=== PATIENT | male | born 1955 | race Caucasian/White ===

== ENCOUNTER 2017-04-22 10:46 | Emergency (ER) | payer BC ==
[~2017-04-22] VITALS: Ht 180.3 cm; Wt 72.6 kg
[~2017-04-22 10:46] MED LIST: CEFD300 PO; CHOL10002 PO; FOLI1 PO; PRED20 PO
[2017-04-22 11:18] LABS: Hematocrit 28.2 % (37.0-53.0); Hemoglobin 8.5 g/dL (13.5-17.5); Mean Corpuscular HGB 32.4 pg (26.0-34.0); Mean Corpuscular HGB Conc 30.1 g/dL (31.5-36.5); Mean Corpuscular Volume 108 fL (80-100); Mean Platelet Volume 8.5 fL (9.1-12.4); NRBC ABSOLUTE 1.21 K/mm3 (0.00-0.02); NRBC Auto 4.8 /100 WBC (0.0-0.2); Platelet Count 253 K/mm3 (150-400); RDW Coefficient Variation 18.5 % (11.7-14.2); RDW Standard Deviation 70.1 fL (35.1-46.3); Red Blood Cell Count 2.62 M/mm3 (4.30-5.90); White Blood Cell Count 25.34 K/mm3 (4.00-11.30)
[2017-04-22 11:39] LABS: Alanine Aminotransfer (ALT/SGP 32 U/L (12-78); Albumin, Blood 3.9 g/dL (3.4-5.0); Albumin/Globulin Ratio 1.3 (0.8-1.8); Alk Phos 93 U/L (50-136); Anion Gap 6 mmol/L (6-16); Aspartate Aminotrans (AST/SGOT 33 U/L (12-37); Blood Urea Nitrogen 17 mg/dL (8-24); Bun/Creatinine Ratio 20.7 (12.0-20.0); CO2, Blood 29 mmol/L (21-32); Calcium, Blood 8.3 mg/dL (8.5-10.1); Chloride, Blood 103 mmol/L (98-108); Creatinine, Blood 0.82 mg/dL (0.60-1.20); Glomerular Filtration Rate >60 (60-); Glucose, Blood 103 mg/dL (70-99); Potassium, Blood 4.2 mmol/L (3.5-5.5); Sodium, Blood 138 mmol/L (136-145); Total Protein, Blood 6.9 g/dL (6.4-8.2)
[2017-04-22 11:43] LABS: BAND PERCENT MAN 2 % (0-8); BASOPHILS PERCENT MAN 2 % (0-2); EOSINOPHILS PERCENT MAN 2 % (0-6); LYMPHOCYTES ABSOLUTE MAN 1.52 K/mm3 (0.84-5.20); LYMPHOCYTES PERCENT MAN 6 % (21-46); METAMYELOCYTE ABSOLUTE MAN 0.25 K/mm3 (0.00-0.00); METAMYELOCYTE PERCENT MAN 1 % (0-0); MONOCYTES PERCENT MAN 0 % (4-13); NEUTROPHILS ABSOLUTE MAN 22.55 K/mm3 (1.96-9.15); SEG NEUTROPHILS PERCENT MAN 87 % (41-73); TOTAL CELLS COUNTED 100
== END 2017-04-22 13:40 | disposition left against medical advice (07) ==
LOC: ER 10:46
PROVIDERS: Emergency Medicine
DX: R55 Syncope and collapse (principal); R79.89 Other specified abnormal findings of blood chemistry; F17.200 Nicotine dependence, unspecified, uncomplicated; Z88.5 Allergy status to narcotic agent; Z79.899 Other long term (current) drug therapy; Z79.52 Long term (current) use of systemic steroids
CPT/HCPCS: 36415; 71046; 80053; 84484; 85025; 93005; 93010; 99283

== ENCOUNTER → 2017-11-07 | Outpatient (CLI) | payer BC | LOC: LAB SHORT 08:05 → PLD 08:05 | DX: L98.9 Disorder of the skin and subcutaneous tissue, unspecified (principal) | CPT/HCPCS: 88305; 88312 ==

== ENCOUNTER 2018-04-16 16:35 | Emergency (ER) | payer MEDICARE ==
[~2018-04-16] VITALS: Ht 167.6 cm; Wt 71.7 kg
[2018-04-16] MEDS ORDERED: MINO50 PO (17:04)
[2018-04-16 17:16] LABS: BASOPHILS ABSOLUTE AUTO 0.07 K/mm3 (0.00-0.23); BASOPHILS PERCENT AUTO 1 % (0-2); EOSINOPHILS ABSOLUTE AUTO 0.46 K/mm3 (0.00-0.68); EOSINOPHILS PERCENT AUTO 6 % (0-6); Hematocrit 43.6 % (37.0-53.0); Hemoglobin 13.3 g/dL (13.5-17.5); Mean Corpuscular HGB 27.3 pg (26.0-34.0); Mean Corpuscular HGB Conc 30.5 g/dL (31.5-36.5); Mean Corpuscular Volume 89 fL (80-100); Platelet Count 313 K/mm3 (150-400); RDW Coefficient Variation 19.8 % (11.7-14.2); RDW Standard Deviation 63.9 fL (35.1-46.3); Red Blood Cell Count 4.88 M/mm3 (4.30-5.90); White Blood Cell Count 8.16 K/mm3 (4.00-11.30)
[2018-04-16 17:23] LABS: IMMATURE GRAN ABSOLUTE AUTO 0.05 K/mm3 (0.00-0.10); IMMATURE GRAN PERCENT AUTO 1 % (0-1); LYMPHOCYTES ABSOLUTE AUTO 0.41 K/mm3 (0.84-5.20); LYMPHOCYTES PERCENT AUTO 5 % (21-46); MONOCYTES ABSOLUTE AUTO 0.02 K/mm3 (0.16-1.47); MONOCYTES PERCENT AUTO 0 % (4-13); NEUTROPHILS ABSOLUTE AUTO 7.15 K/mm3 (1.96-9.15); NEUTROPHILS PERCENT AUTO 88 % (41-73)
[2018-04-16 17:38] LABS: Alanine Aminotransfer (ALT/SGP 75 U/L (12-78); Albumin, Blood 3.4 g/dL (3.4-5.0); Albumin/Globulin Ratio 0.9 (0.8-1.8); Alk Phos 103 U/L (50-136); Anion Gap 7 mmol/L (6-16); Aspartate Aminotrans (AST/SGOT 47 U/L (12-37); Bilirubin, Total 1.4 mg/dL (0.1-1.0); Blood Urea Nitrogen 16 mg/dL (8-24); Bun/Creatinine Ratio 15.8 (12.0-20.0); CO2, Blood 29 mmol/L (21-32); Chloride, Blood 95 mmol/L (98-108); Creatinine, Blood 1.01 mg/dL (0.60-1.20); Globulin, Blood 3.7 g/dL (2.2-4.0); Glomerular Filtration Rate >60 (60-); Glucose, Blood 112 mg/dL (70-99); Potassium, Blood 3.3 mmol/L (3.5-5.5); Sodium, Blood 131 mmol/L (136-145); Total Protein, Blood 7.1 g/dL (6.4-8.2)
[2018-04-16 18:57] LABS: Source, Urine Clean Catch
[2018-04-16 19:02] LABS: Bilirubin, Urine Neg (Neg); Blood, Urine 2+ (Neg); Glucose Qualitative, Urine Neg (Neg); Ketones, Urine Neg (Neg); Leukocyte Esterase, Urine Neg (Neg); Nitrite, Urine Neg (Neg); Protein, Urine 2+ (Neg); Specific Gravity, Urine 1.015 (1.003-1.022); Urobilinogen, Urine 2+ (Normal)
[2018-04-16 19:06] LABS: Appearance, Urine Clear (Clear); Color, Urine Yellow (P-Yellow)
[2018-04-16 19:07] LABS: Bacteria Few /hpf; Red Blood Cells, Urine 0-2 /hpf (0-2); Squamous Epithelial Cells Few /hpf (Few); White Blood Cells, Urine 0-2 /hpf (0-5)
[2018-04-16 19:16] LABS: Influenza A Negative (NEGATIVE); Influenza B Negative (NEGATIVE)
[2018-04-16] MEDS ORDERED: Zithromax250 MG PO (20:22)
== END 2018-04-16 20:58 | disposition home or self-care (01) ==
LOC: ER 16:35
PROVIDERS: Emergency Medicine; Physician Assistant
DX: R50.9 Fever, unspecified (principal); L10.9 Pemphigus, unspecified; F15.90 Other stimulant use, unspecified, uncomplicated; Z88.5 Allergy status to narcotic agent; Z79.899 Other long term (current) drug therapy; Z79.52 Long term (current) use of systemic steroids; F17.200 Nicotine dependence, unspecified, uncomplicated
CPT/HCPCS: 36415; 71046; 80053; 81001; 85025; 87804; 96365; 96375; 99283-25; J0696; J1885

== ENCOUNTER 2018-07-05 07:11 | Day surgery (SDC) | payer MEDICARE ==
[~2018-07-05] VITALS: Ht 175.3 cm; Wt 67.4 kg
[~2018-07-05 07:11] MED LIST changes: +MINO50 PO; +Zithromax250 MG PO
== END 2018-07-05 10:30 | disposition home or self-care (01) ==
LOC: ORSCSDS 07:11
PROVIDERS: Surgery
PROC: B5131ZA Fluoroscopy of Right Jugular Veins using Low Osmolar Contrast, Guidance (ICD-10-PCS; principal; 2018-07-05 08:30)
PROC: 05HM33Z Insertion of Infusion Device into Right Internal Jugular Vein, Percutaneous Approach (ICD-10-PCS; principal; 2018-07-05 08:30)
DX: C94.6 Myelodysplastic disease, not elsewhere classified (principal); Z87.891 Personal history of nicotine dependence
CPT/HCPCS: 77001; C1788; J0690; J1100; J1642; J2250; J2405; J2704; J3010; J7120

== ENCOUNTER 2018-07-09 14:11 | Emergency (ER) | payer MEDICARE ==
[~2018-07-09] VITALS: Ht 172.7 cm; Wt 68.0 kg
[2018-07-09 15:01] LABS: Hemoglobin 11.5 g/dL (13.5-17.5); Mean Corpuscular HGB 25.2 pg (26.0-34.0); Mean Corpuscular HGB Conc 30.3 g/dL (31.5-36.5); Mean Platelet Volume 9.8 fL (9.1-12.4); Platelet Count 267 K/mm3 (150-400); RDW Coefficient Variation 17.9 % (11.7-14.2); RDW Standard Deviation 54.3 fL (35.1-46.3); Red Blood Cell Count 4.56 M/mm3 (4.30-5.90); White Blood Cell Count 6.69 K/mm3 (4.00-11.30)
[2018-07-09 15:04] LABS: Mean Corpuscular Volume 83 fL (80-100)
[2018-07-09 15:13] LABS: Alanine Aminotransfer (ALT/SGP 25 U/L (12-78); Albumin, Blood 3.2 g/dL (3.4-5.0); Albumin/Globulin Ratio 0.8 (0.8-1.8); Alk Phos 124 U/L (50-136); Anion Gap 9 mmol/L (6-16); Aspartate Aminotrans (AST/SGOT 15 U/L (12-37); Bilirubin, Total 1.7 mg/dL (0.1-1.0); Blood Urea Nitrogen 17 mg/dL (8-24); Bun/Creatinine Ratio 18.2 (12.0-20.0); CO2, Blood 25 mmol/L (21-32); Calcium, Blood 8.7 mg/dL (8.5-10.1); Chloride, Blood 98 mmol/L (98-108); Creatinine, Blood 0.93 mg/dL (0.60-1.20); Globulin, Blood 3.8 g/dL (2.2-4.0); Glomerular Filtration Rate >60 (60-); Glucose, Blood 121 mg/dL (70-99); Potassium, Blood 4.1 mmol/L (3.5-5.5); Sodium, Blood 132 mmol/L (136-145)
[2018-07-09] MEDS ORDERED: Proventil5 MG/1 ML INH (15:40)
[2018-07-09] MEDS ORDERED: Zithromax250 MG PO (15:40)
[2018-07-09] MEDS ORDERED: PRED20 PO (15:41)
[2018-07-09 15:49] LABS: NRBC Auto 0.3 /100 WBC (0.0-0.2)
[2018-07-09 15:51] LABS: NRBC ABSOLUTE 0.02 K/mm3 (0.00-0.02)
[2018-07-09 15:53] LABS: BAND PERCENT MAN 4 % (0-8); BASOPHILS ABSOLUTE MAN 0.06 K/mm3 (0.00-0.23); BASOPHILS PERCENT MAN 1 % (0-2); EOSINOPHILS ABSOLUTE MAN 0.06 K/mm3 (0.00-0.68); EOSINOPHILS PERCENT MAN 1 % (0-6); LYMPHOCYTES % ATYPICAL MANUAL 3 % (0-0); LYMPHOCYTES PERCENT MAN 6 % (21-46); MONOCYTES ABSOLUTE MAN 0.26 K/mm3 (0.16-1.47); MONOCYTES PERCENT MAN 4 % (4-13); NEUTROPHILS ABSOLUTE MAN 5.68 K/mm3 (1.96-9.15); SEG NEUTROPHILS PERCENT MAN 81 % (41-73); TOTAL CELLS COUNTED 100
== END 2018-07-09 16:40 | disposition home or self-care (01) ==
LOC: ER 14:11
PROVIDERS: Physician Assistant
DX: J44.9 Chronic obstructive pulmonary disease, unspecified (principal); Z88.5 Allergy status to narcotic agent; Z79.899 Other long term (current) drug therapy; Z79.52 Long term (current) use of systemic steroids; Z87.891 Personal history of nicotine dependence
CPT/HCPCS: 36415; 71046; 80053; 84484; 85025; 94640; 96365; 99284-25; J0696; J7512

== ENCOUNTER → 2019-03-07 | Outpatient (CLI) | payer MEDICARE ==
[~2019-03-07] MED LIST changes: +Proventil5 MG/1 ML INH
== END | disposition home or self-care (01) ==
LOC: LAB SHORT 13:42 → LAB 13:42
DX: L98.9 Disorder of the skin and subcutaneous tissue, unspecified (principal); L30.9 Dermatitis, unspecified
CPT/HCPCS: 87070; 87205

== ENCOUNTER 2019-04-13 08:56 | Day surgery (SDC) | payer MEDICARE | END 2019-04-13 23:42 | disposition home or self-care (01) | LOC: WOUND 08:56 | DX: S91.105A Unspecified open wound of left lesser toe(s) without damage to nail, initial encounter (principal); I96 Gangrene, not elsewhere classified; I10 Essential (primary) hypertension; D59.1 Other autoimmune hemolytic anemias; G47.00 Insomnia, unspecified; E78.5 Hyperlipidemia, unspecified; Z79.52 Long term (current) use of systemic steroids; Z79.899 Other long term (current) drug therapy; Z88.5 Allergy status to narcotic agent; X58.XXXA Exposure to other specified factors, initial encounter | CPT/HCPCS: G0463 ==

== ENCOUNTER 2019-04-24 00:13 | Day surgery (SDC) | payer MEDICARE | END 2019-04-24 22:49 | disposition home or self-care (01) | LOC: WOUND 00:13 | DX: S91.105A Unspecified open wound of left lesser toe(s) without damage to nail, initial encounter (principal); I10 Essential (primary) hypertension; D59.1 Other autoimmune hemolytic anemias; I96 Gangrene, not elsewhere classified; Z88.5 Allergy status to narcotic agent; Z79.52 Long term (current) use of systemic steroids; Z79.899 Other long term (current) drug therapy; X58.XXXA Exposure to other specified factors, initial encounter ==

== ENCOUNTER 2019-05-01 00:06 | Day surgery (SDC) | payer MEDICARE | END 2019-05-01 23:02 | disposition home or self-care (01) | LOC: WOUND 00:06 | DX: S91.105D Unspecified open wound of left lesser toe(s) without damage to nail, subsequent encounter (principal); S91.104D Unspecified open wound of right lesser toe(s) without damage to nail, subsequent encounter | CPT/HCPCS: G0463 ==

== ENCOUNTER 2019-05-08 00:17 | Day surgery (SDC) | payer MEDICARE | END 2019-05-08 22:59 | disposition home or self-care (01) | LOC: WOUND 00:17 | DX: S91.105D Unspecified open wound of left lesser toe(s) without damage to nail, subsequent encounter (principal); S91.104D Unspecified open wound of right lesser toe(s) without damage to nail, subsequent encounter | CPT/HCPCS: G0463 ==

== ENCOUNTER 2019-05-15 00:14 | Day surgery (SDC) | payer MEDICARE | END 2019-05-15 23:04 | disposition home or self-care (01) | LOC: WOUND 00:14 | DX: S91.105D Unspecified open wound of left lesser toe(s) without damage to nail, subsequent encounter (principal); S91.104D Unspecified open wound of right lesser toe(s) without damage to nail, subsequent encounter; I74.4 Embolism and thrombosis of arteries of extremities, unspecified ==

== ENCOUNTER 2019-05-22 08:59 | Inpatient (IN) | payer MEDICARE ==
[~2019-05-22] VITALS: Ht 172.7 cm; Wt 68.8 kg
[~2019-05-22 08:59] MED LIST changes: -AZACITIDINE100 MG IV; -CLOPIDOGREL75 MG PO; -DECITABINE IV; -GABA300 PO; -LISI20 PO; -MELATONIN 5 MG1 EACH PO; -Norco 10-325 T1 EACH PO; -Prednisone10 MG PO
[2019-05-22 09:51] LABS: BASOPHILS ABSOLUTE AUTO 0.01 K/mm3 (0.00-0.23); Hematocrit 34.2 % (37.0-53.0); Hemoglobin 10.3 g/dL (13.5-17.5); Mean Corpuscular HGB 24.1 pg (26.0-34.0); Mean Corpuscular HGB Conc 30.1 g/dL (31.5-36.5); Mean Corpuscular Volume 80 fL (80-100); Mean Platelet Volume 10.1 fL (9.1-12.4); NRBC ABSOLUTE 0.02 K/mm3 (0.00-0.02); NRBC Auto 1.3 /100 WBC (0.0-0.2); Platelet Count 219 K/mm3 (150-400); RDW Coefficient Variation 24.6 % (11.7-14.2); RDW Standard Deviation 68.3 fL (35.1-46.3); Red Blood Cell Count 4.27 M/mm3 (4.30-5.90); White Blood Cell Count 1.52 K/mm3 (4.00-11.30)
[2019-05-22 10:10] LABS: Albumin, Blood 2.5 g/dL (3.4-5.0); Albumin/Globulin Ratio 0.6 (0.8-1.8); Bilirubin, Total 0.8 mg/dL (0.1-1.0); Bun/Creatinine Ratio 28.9 (12.0-20.0); Calcium, Blood 8.5 mg/dL (8.5-10.1); Creatinine, Blood 1.28 mg/dL (0.60-1.20); Globulin, Blood 4.2 g/dL (2.2-4.0); Magnesium, Blood 1.7 mg/dL (1.6-2.4); Potassium, Blood 4.4 mmol/L (3.5-5.5); Total Protein, Blood 6.7 g/dL (6.4-8.2)
[2019-05-22 10:13] LABS: Troponin I 0.051 ng/mL (0.000-0.040)
[2019-05-22 10:16] LABS: EOSINOPHILS ABSOLUTE AUTO 0.08 K/mm3 (0.00-0.68); EOSINOPHILS PERCENT AUTO 5 % (0-6)
[2019-05-22 10:20] LABS: International Normalized Ratio 1.22; Prothrombin Time Results 12.9 Sec (9.7-11.5)
[2019-05-22 10:24] LABS: BASOPHILS PERCENT AUTO 1 % (0-2); IMMATURE GRAN PERCENT AUTO 2 % (0-1); LYMPHOCYTES PERCENT AUTO 22 % (21-46); NEUTROPHILS PERCENT AUTO 56 % (41-73)
[2019-05-22 10:25] LABS: IMMATURE GRAN ABSOLUTE AUTO 0.03 K/mm3 (0.00-0.10); LYMPHOCYTES ABSOLUTE AUTO 0.33 K/mm3 (0.84-5.20); MONOCYTES ABSOLUTE AUTO 0.21 K/mm3 (0.16-1.47); NEUTROPHILS ABSOLUTE AUTO 0.85 K/mm3 (1.96-9.15)
[2019-05-22 10:26] LABS: MONOCYTES PERCENT AUTO 14 % (4-13)
[2019-05-22] MEDS ORDERED: CLOPIDOGREL75 MG PO (13:05)
[2019-05-22] MEDS ORDERED: GABA300 PO (13:05)
[2019-05-22] MEDS ORDERED: Norco 10-325 T1 EACH PO (13:05)
[2019-05-22] MEDS ORDERED: MELATONIN 5 MG1 EACH PO (13:05)
[2019-05-22] MEDS ORDERED: DECITABINE IV (13:06)
[2019-05-22] MEDS ORDERED: AZACITIDINE100 MG IV (13:06)
[2019-05-22] MEDS ORDERED: LISI20 PO (13:07)
[2019-05-22] MEDS ORDERED: Prednisone10 MG PO (14:07)
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
[2019-05-23 04:39] LABS: EOSINOPHILS PERCENT AUTO 10 % (0-6); Hematocrit 28.8 % (37.0-53.0); Hemoglobin 8.7 g/dL (13.5-17.5); LYMPHOCYTES PERCENT AUTO 35 % (21-46); MONOCYTES PERCENT AUTO 10 % (4-13); Mean Corpuscular HGB 24.4 pg (26.0-34.0); Mean Corpuscular HGB Conc 30.2 g/dL (31.5-36.5); Mean Corpuscular Volume 81 fL (80-100); Mean Platelet Volume 9.5 fL (9.1-12.4); NEUTROPHILS PERCENT AUTO 42 % (41-73); NRBC ABSOLUTE 0.02 K/mm3 (0.00-0.02); NRBC Auto 2.6 /100 WBC (0.0-0.2); Platelet Count 227 K/mm3 (150-400); RDW Coefficient Variation 24.5 % (11.7-14.2); Red Blood Cell Count 3.57 M/mm3 (4.30-5.90)
[2019-05-23 04:40] LABS: BASOPHILS ABSOLUTE AUTO 0.01 K/mm3 (0.00-0.23); BASOPHILS PERCENT AUTO 1 % (0-2); EOSINOPHILS ABSOLUTE AUTO 0.08 K/mm3 (0.00-0.68); IMMATURE GRAN ABSOLUTE AUTO 0.01 K/mm3 (0.00-0.10); IMMATURE GRAN PERCENT AUTO 1 % (0-1); LYMPHOCYTES ABSOLUTE AUTO 0.27 K/mm3 (0.84-5.20); MONOCYTES ABSOLUTE AUTO 0.08 K/mm3 (0.16-1.47); NEUTROPHILS ABSOLUTE AUTO 0.33 K/mm3 (1.96-9.15); White Blood Cell Count 0.78 K/mm3 (4.00-11.30)
[2019-05-23 04:47] LABS: International Normalized Ratio 1.43
[2019-05-23 04:49] LABS: Alanine Aminotransfer (ALT/SGP 46 U/L (12-78); Albumin/Globulin Ratio 0.5 (0.8-1.8); Alk Phos 132 U/L (50-136); Anion Gap 6 mmol/L (6-16); Aspartate Aminotrans (AST/SGOT 35 U/L (12-37); Bilirubin, Total 0.7 mg/dL (0.1-1.0); Blood Urea Nitrogen 24 mg/dL (8-24); Bun/Creatinine Ratio 26.4 (12.0-20.0); CO2, Blood 24 mmol/L (21-32); Chloride, Blood 108 mmol/L (98-108); Creatinine, Blood 0.91 mg/dL (0.60-1.20); Globulin, Blood 3.8 g/dL (2.2-4.0); Glomerular Filtration Rate >60 (60-); Glucose, Blood 100 mg/dL (70-99); Magnesium, Blood 1.7 mg/dL (1.6-2.4); Potassium, Blood 4.1 mmol/L (3.5-5.5); Sodium, Blood 138 mmol/L (136-145); Total Protein, Blood 5.8 g/dL (6.4-8.2)
--- NOTE | 2019-05-23 05:35 | NUR ---
SHIFT SUMMARY: PATIENT VSS, SBA, PLACED ON NEUTROPENIC PRECAUTIONSD/T WBC COUNT OF 0.78(MD NOTIFIED), ECHO PENDING, BED LOW AND LOCKED, CALL LIGHT WITHIN REACH.
--- NOTE | 2019-05-23 13:42 | NUR ---
DR ALVAREZ IN TO SEE PATIENT; CALLED TO CLARIFY ORDERS FOR GRANIX; WANTING FIRST DOSE NOW.
--- NOTE | 2019-05-23 15:30 | NUR ---
Echocardiogram completed.
--- NOTE | 2019-05-23 16:32 | NUR ---
SHIFT SUMMARY/TRANSFER NOTE A&Ox4; CALM AND COOPERATIVE WITH CARE. PT RESTING IN BED DURING SHIFT. SBA TO BATHROOM. PT REPORTS MILD PAIN TO BILATERAL PINKY TOES WHEN TOUCHED, REPOSITION AND REST; PROVIDED WITH CRADLE TO KEEP BLANKETS FROM TOUCHING. PT DENIES SBO, CHEST PAIN/PRESSURE, DIZZINESS, AND NASUEA T/O SHIFT. WBC CRITICALLY LOW, NEW ORDER FROM DR ALVAREZ TO START GRANIX TODAY, ADMINISTERED APPEARS TO BE TOLERATING WELL. PER TELE NSR; NO EVENTS NOTED; PT TRANSFERING TO MEDICAL FLOOR WITH TELE. VSS. NO OTHER ACUTE CHANGES NOTED. REPORT GIVEN TO JINA MORENO RN ON MEDICAL FLOOR; PT TRANSFERED AT 1625 VIA WHEELCHAIR.
--- NOTE | 2019-05-23 18:52 | NUR ---
SHIFT SUMMARY PT WAS A PCU TRANSFER THIS AFTERNOON. PT IS ALERT AND ORIENTED X4. NO COMPLAINTS OF PAIN OR SHORTNESS OF BREATH SINCE TRANSFER. IVF INFUSING WITHOUT DIFFICULTY. NO ACUTE CHANGES AT THIS TIME. CALL LIGHT IN REACH.
--- NOTE | 2019-05-24 04:59 | NUR ---
SHIFT SUMMARY: VSS. AFEB. A/OX4. COMMUNICATES NEEDS. INDEPENDENT IN ROOM. PT HAS REMAINED IN SINUS RHYTHM THROUGH THE NIGHT. DENIES ANY SYNCOPAL EPISODES TONIGHT. NO ACUTE CHANGES OVER NIGHT. WILL CONT TO MONITOR.
[2019-05-24 05:26] LABS: Hematocrit 31.4 % (37.0-53.0); Hemoglobin 9.3 g/dL (13.5-17.5); Mean Corpuscular HGB 24.2 pg (26.0-34.0); Mean Corpuscular HGB Conc 29.6 g/dL (31.5-36.5); Mean Corpuscular Volume 82 fL (80-100); Mean Platelet Volume 9.8 fL (9.1-12.4); Platelet Count 284 K/mm3 (150-400); RDW Coefficient Variation 24.5 % (11.7-14.2); RDW Standard Deviation 69.7 fL (35.1-46.3); Red Blood Cell Count 3.84 M/mm3 (4.30-5.90)
[2019-05-24 05:29] LABS: BASOPHILS ABSOLUTE AUTO 0.01 K/mm3 (0.00-0.23); BASOPHILS PERCENT AUTO 1 % (0-2); EOSINOPHILS PERCENT AUTO 14 % (0-6); IMMATURE GRAN ABSOLUTE AUTO 0.07 K/mm3 (0.00-0.10); IMMATURE GRAN PERCENT AUTO 10 % (0-1); LYMPHOCYTES ABSOLUTE AUTO 0.28 K/mm3 (0.84-5.20); LYMPHOCYTES PERCENT AUTO 38 % (21-46); MONOCYTES ABSOLUTE AUTO 0.08 K/mm3 (0.16-1.47); MONOCYTES PERCENT AUTO 11 % (4-13); NEUTROPHILS ABSOLUTE AUTO 0.19 K/mm3 (1.96-9.15); NEUTROPHILS PERCENT AUTO 26 % (41-73)
[2019-05-24 05:30] LABS: Anion Gap 6 mmol/L (6-16); Blood Urea Nitrogen 18 mg/dL (8-24); Bun/Creatinine Ratio 21.4 (12.0-20.0); CO2, Blood 25 mmol/L (21-32); Calcium, Blood 8.1 mg/dL (8.5-10.1); Chloride, Blood 108 mmol/L (98-108); Creatinine, Blood 0.84 mg/dL (0.60-1.20); Glomerular Filtration Rate >60 (60-); Glucose, Blood 115 mg/dL (70-99); Sodium, Blood 139 mmol/L (136-145)
[2019-05-24 05:31] LABS: White Blood Cell Count 0.73 K/mm3 (4.00-11.30)
--- NOTE | 2019-05-24 13:47 | NUR ---
Pt. is doing much better encouraged pt. and offered prayers
--- NOTE | 2019-05-24 18:49 | NUR ---
SHIFT SUMMARY PT HAS HAD NO ACUTE CHANGES THIS SHIFT. NO COMPLAINTS OF PAIN, SHORTNESS OF BREATH. PT HAS A GOOD APPETITE AND IS VOIDING WITHOUT DIFFICULTY. WAITING FOR PT'S WBC TO INCREASE FOR PLANS TO DISCHARGE HOME. CALL LIGHT IN REACH. WILL CONTINUE TO MONITOR.
--- NOTE | 2019-05-24 19:38 | NUR ---
PT SITTING UP IN BED, REPORTS N/T IN TOES THAT IS NOT NEW, PAIN IN BILATERAL PINKY TOES THAT IS BURNING AND THROBING AT A 5/10, REQUESTING PAIN MEDICATION, NONE IS ORDERED AT THIS TIME, WILL CALL DR AND F/U WITH WHATEVER IS ORDERED AND ASSESS FOR EFFECTIVENESS. TELE IS NSR AT 72. NO OTHER APPARENT SIGNS OF DISTRESS. CALL LIGHT IS IN REACH.
--- NOTE | 2019-05-25 04:55 | NUR ---
0000 PT LYING IN BED, EYES CLOSED, APPEARS TO BE RESTING. WAKES EASILY TO VERBAL STIMULI. NO APPARENT SIGNS OF DISTRESS. CALL LIGHT IS IN REACH. 0200 PT LYING IN BED, EYES CLOSED, APPEARS TO BE RESTING. BREATHING IS EVEN AND UNLABORED. NO APPARENT SIGNS OF DISTRESS. CALL LIGHT IS IN REACH.
--- NOTE | 2019-05-25 04:56 | NUR ---
0400 PT LYING IN BED, EYES CLOSED, APPEARS TO BE RESTING. WAKES EASILY TO VERBAL STIMULI. NO APPARENT SIGNS OF DISTRESS. CALL LIGHT IS IN REACH.
--- NOTE | 2019-05-25 04:57 | NUR ---
PT IS AAO X 4, ON RA. MEDIPORT TO RCW, HL. REPORTS PAIN BILATERAL PINKY TOES, GOT ULTRAM X 1. TELE NSR. CHRONIC WOUNDS TO BILATERAL PINKY TOES, NO DRAINAGE, OPEN TO AIR.
[2019-05-25 05:15] LABS: Hematocrit 31.4 % (37.0-53.0); Hemoglobin 9.4 g/dL (13.5-17.5); Mean Corpuscular HGB 24.4 pg (26.0-34.0); Mean Corpuscular HGB Conc 29.9 g/dL (31.5-36.5); Mean Corpuscular Volume 82 fL (80-100); Mean Platelet Volume 9.5 fL (9.1-12.4); NRBC ABSOLUTE 0.02 K/mm3 (0.00-0.02); NRBC Auto 2.5 /100 WBC (0.0-0.2); Platelet Count 355 K/mm3 (150-400); RDW Coefficient Variation 24.4 % (11.7-14.2); RDW Standard Deviation 70.3 fL (35.1-46.3); Red Blood Cell Count 3.85 M/mm3 (4.30-5.90)
[2019-05-25 05:17] LABS: BASOPHILS ABSOLUTE AUTO 0.01 K/mm3 (0.00-0.23); BASOPHILS PERCENT AUTO 1 % (0-2); EOSINOPHILS ABSOLUTE AUTO 0.14 K/mm3 (0.00-0.68); EOSINOPHILS PERCENT AUTO 18 % (0-6); IMMATURE GRAN PERCENT AUTO 0 % (0-1); LYMPHOCYTES ABSOLUTE AUTO 0.32 K/mm3 (0.84-5.20); LYMPHOCYTES PERCENT AUTO 41 % (21-46); MONOCYTES PERCENT AUTO 13 % (4-13); NEUTROPHILS ABSOLUTE AUTO 0.22 K/mm3 (1.96-9.15); NEUTROPHILS PERCENT AUTO 28 % (41-73)
[2019-05-25 05:18] LABS: White Blood Cell Count 0.79 K/mm3 (4.00-11.30)
--- NOTE | 2019-05-25 06:19 | NUR ---
PT LYING IN BED, EYES CLOSED, APPEARS TO BE RESTING. BREATHING IS EVEN, UNLABORED. NO APPARENT SIGNS OF DISTRESS. CALL LIGHT IS IN REACH. NO OTHER CHANGES THIS SHIFT.
--- NOTE | 2019-05-25 16:44 | NUR ---
PT IS A/OX3, PLEASANT AND COOPERATIVE, THE PT IS UP IND IN HIS ROOM, THE PY IS ON NEUTROPENIC PRECAUTIONS, DOOR REMAINS CLOSED, THE PT DENIED ANY PAIN SO FAR THIS SHIFT, AT THE BEDSIDE, THE PT APPEARS TO BE BREATHING EASILY ON RA, CALL LIGHT IN REACH
--- NOTE | 2019-05-26 04:03 | NUR ---
SHIFT SUMMARY PATIENT HAD NO ACUTE CHANGES OBSERVED THIS SHIFT. AXOX 3 AND INDEPENDENT IN ROOM. DENIES PAIN, SOB, AND N/V. VSS/AFEBRILE. NEUTROPENIC PRECAUTIONS. ROOM AIR. [facility] HEPAR[facility] LOCK. COOPERATIVE WITH CARE. CALL LIGHT IN REACH. BED IN LOWEST POSITION. WILL CONTINUE TO MONITOR UNTIL DAY SHIFT NURSE ASSUMES CARE.
[2019-05-26 05:47] LABS: Hematocrit 31.4 % (37.0-53.0); Hemoglobin 9.4 g/dL (13.5-17.5); Mean Corpuscular HGB 24.4 pg (26.0-34.0); Mean Corpuscular HGB Conc 29.9 g/dL (31.5-36.5); Mean Corpuscular Volume 82 fL (80-100); Mean Platelet Volume 9.2 fL (9.1-12.4); NRBC ABSOLUTE 0.05 K/mm3 (0.00-0.02); NRBC Auto 4.3 /100 WBC (0.0-0.2); Platelet Count 383 K/mm3 (150-400); RDW Coefficient Variation 24.1 % (11.7-14.2); RDW Standard Deviation 70.8 fL (35.1-46.3); Red Blood Cell Count 3.85 M/mm3 (4.30-5.90); White Blood Cell Count 1.15 K/mm3 (4.00-11.30)
[2019-05-26 06:08] LABS: Anion Gap 8 mmol/L (6-16); Blood Urea Nitrogen 14 mg/dL (8-24); Bun/Creatinine Ratio 15.5 (12.0-20.0); CO2, Blood 26 mmol/L (21-32); Calcium, Blood 8.4 mg/dL (8.5-10.1); Chloride, Blood 107 mmol/L (98-108); Glomerular Filtration Rate >60 (60-); Glucose, Blood 122 mg/dL (70-99); Potassium, Blood 4.1 mmol/L (3.5-5.5); Sodium, Blood 141 mmol/L (136-145)
[2019-05-26 06:22] LABS: BAND PERCENT MAN 2 % (0-8); BASOPHILS PERCENT MAN 0 % (0-2); EOSINOPHILS ABSOLUTE MAN 0.29 K/mm3 (0.00-0.68); EOSINOPHILS PERCENT MAN 26 % (0-6); LYMPHOCYTES ABSOLUTE MAN 0.48 K/mm3 (0.84-5.20); LYMPHOCYTES PERCENT MAN 42 % (21-46); MONOCYTES ABSOLUTE MAN 0.05 K/mm3 (0.16-1.47); MONOCYTES PERCENT MAN 5 % (4-13); NEUTROPHILS ABSOLUTE MAN 0.26 K/mm3 (1.96-9.15); SEG NEUTROPHILS PERCENT MAN 21 % (41-73); TOTAL CELLS COUNTED 100
[2019-05-26 06:24] LABS: OTHER CELL PERCENT MAN 4 % (0-0)
--- NOTE | 2019-05-26 18:14 | NUR ---
nO ACUTE CHANGES. NO CURRENT COMPLAINTS OF PAIN OR DISCOMFORT NOTED. PATIENT STATES HE IS FEELING WELL AND CAN'T WAIT TO GO HOME. NO OTHER ISSUES NOTED AT THIS TIME. WILL CONTINUE TO MONITOR FOR CHANGES.
--- NOTE | 2019-05-27 04:44 | NUR ---
SHIFT SUMMARY PATIENT HAD NO ACUTE CHANGES OBSERVED. AXO X3 AND INDEPENDENT IN ROOM. REPORTED TOE PAIN AND ULTRAM 50 MG GIVEN PER EMAR. REPORTED PAIN RELIEF AND AND ABLE TO SLEEP. TAKES MEDICATION WHOLE WITH WATER. [facility]. CONFERENCE ASSISTANT REPORTS SR @67. VSS/AFBERILE. DENIES SOB AND N/V. CALL LIGHT IN REACH. BED IN LOWEST POSITION. WILL CONTINUE TO MONITOR UNTIL DAY SHIFT NURSE ASSUMES CARE.
[2019-05-27 06:09] LABS: Hematocrit 30.5 % (37.0-53.0); Hemoglobin 9.2 g/dL (13.5-17.5); Mean Corpuscular HGB 24.6 pg (26.0-34.0); Mean Corpuscular HGB Conc 30.2 g/dL (31.5-36.5); Mean Corpuscular Volume 82 fL (80-100); Mean Platelet Volume 9.2 fL (9.1-12.4); NRBC ABSOLUTE 0.07 K/mm3 (0.00-0.02); NRBC Auto 4.9 /100 WBC (0.0-0.2); Platelet Count 464 K/mm3 (150-400); RDW Coefficient Variation 24.2 % (11.7-14.2); RDW Standard Deviation 70.3 fL (35.1-46.3); Red Blood Cell Count 3.74 M/mm3 (4.30-5.90); White Blood Cell Count 1.44 K/mm3 (4.00-11.30)
[2019-05-27 06:24] LABS: BAND PERCENT MAN 1 % (0-8); BASOPHILS PERCENT MAN 0 % (0-2); EOSINOPHILS PERCENT MAN 14 % (0-6); LYMPHOCYTES ABSOLUTE MAN 0.86 K/mm3 (0.84-5.20); LYMPHOCYTES PERCENT MAN 60 % (21-46); MONOCYTES ABSOLUTE MAN 0.07 K/mm3 (0.16-1.47); MONOCYTES PERCENT MAN 5 % (4-13); SEG NEUTROPHILS PERCENT MAN 20 % (41-73); TOTAL CELLS COUNTED 100
--- NOTE | 2019-05-27 18:44 | NUR ---
SHIFT SUMMARY PT ALERT AND ORIENTED THROUGHOUT THIS SHIFT. PT'S SPOUSE IN THE ROOM SEVERAL TIMES THIS SHIFT. PT MEDICATED FOR PAIN IN TOES 2X THIS SHIFT. PT DENIED ANY ADDITIONAL NEEDS THIS SHIFT.
--- NOTE | 2019-05-28 03:49 | NUR ---
SHIFT SUMMARY PATIENT HAD NO ACUTE CHANGES OBSERVED. AXO X3 AND INDEPENDENT. MEDIPORT RUC. VSS/AFEBRILE. DENIES PAIN, SOB, AND N/V. PIV REMAINS INTACT. OVEN LOADER REPORTS SR @64. COOPERATIVE WITH CARE. CALL LIGHT IN REACH. BED IN LOWEST POSITION. WILL CONTINUE TO MONITOR UNTIL DAY SHIFT NURSE ASSUMES CARE.
[2019-05-28 06:08] LABS: Hematocrit 33.1 % (37.0-53.0); Hemoglobin 9.8 g/dL (13.5-17.5); Mean Corpuscular HGB 24.4 pg (26.0-34.0); Mean Corpuscular HGB Conc 29.6 g/dL (31.5-36.5); Mean Corpuscular Volume 82 fL (80-100); Mean Platelet Volume 9.6 fL (9.1-12.4); NRBC ABSOLUTE 0.08 K/mm3 (0.00-0.02); NRBC Auto 4.8 /100 WBC (0.0-0.2); Platelet Count 428 K/mm3 (150-400); RDW Coefficient Variation 24.2 % (11.7-14.2); RDW Standard Deviation 71.1 fL (35.1-46.3); Red Blood Cell Count 4.02 M/mm3 (4.30-5.90); White Blood Cell Count 1.65 K/mm3 (4.00-11.30)
[2019-05-28 06:30] LABS: Anion Gap 7 mmol/L (6-16); Blood Urea Nitrogen 13 mg/dL (8-24); Bun/Creatinine Ratio 12.4 (12.0-20.0); CO2, Blood 28 mmol/L (21-32); Calcium, Blood 8.7 mg/dL (8.5-10.1); Chloride, Blood 105 mmol/L (98-108); Creatinine, Blood 1.05 mg/dL (0.60-1.20); Glomerular Filtration Rate >60 (60-); Glucose, Blood 98 mg/dL (70-99); Potassium, Blood 4.1 mmol/L (3.5-5.5); Sodium, Blood 140 mmol/L (136-145)
[2019-05-28 07:42] LABS: BAND PERCENT MAN 3 % (0-8); BASOPHILS PERCENT MAN 0 % (0-2); EOSINOPHILS ABSOLUTE MAN 0.16 K/mm3 (0.00-0.68); EOSINOPHILS PERCENT MAN 10 % (0-6); LYMPHOCYTES % ATYPICAL MANUAL 1 % (0-0); LYMPHOCYTES ABSOLUTE MAN 0.79 K/mm3 (0.84-5.20); LYMPHOCYTES PERCENT MAN 47 % (21-46); MONOCYTES ABSOLUTE MAN 0.06 K/mm3 (0.16-1.47); MONOCYTES PERCENT MAN 4 % (4-13); NEUTROPHILS ABSOLUTE MAN 0.57 K/mm3 (1.96-9.15); SEG NEUTROPHILS PERCENT MAN 32 % (41-73); TOTAL CELLS COUNTED 100
[2019-05-28 07:48] LABS: OTHER CELL PERCENT MAN 3 % (0-0)
--- NOTE | 2019-05-28 18:07 | NUR ---
SUMMARY PT SITTING UP IN BED EATING DINNER, PT HAS BEEN INDEPENDENT IN THE ROOM, PLEASANT AND COOPERATIVE WITH CARE, FRIENDS AND FAMILY HAVE BEEN IN TO VISIT, NO COMPLAINTS, WILL CONT TO MONITOR
--- NOTE | 2019-05-29 04:15 | NUR ---
SUMMARY: PT A/OX4, INDEPENDENT IN ROOM, SPECIFIES NEEDS AND COOPERATIVE W/CARE. HE CONT'S TO REPORT PINKY TOE PAIN W/ULTRAM RECEIVED PRN FOR TOLERABLE CONTROL. BILAT PINKY TOES ARE DISCOLORED AND PURPLE BUT WARM AND PERFUSED W/CAP REFILL WNL. FOOT CRADLE IN PLACE FOR PAIN PREVENTION. PODIATRY CX PENDING. MUPIROCIN OINTMENT APPLIED TO R.ARM ULCERS, NO OOZING NOTED AND PT DENIES PAIN TO SITE. HE REMAINS ON TELEMETRY IN NSR W/BBB AT 60'S BPM. NO ACUTE CHANGES, VSS/AFEBRILE. NEUTROPENIC PRECAUTIONS REMAIN IN PLACE. WCTM AND REPORT TO DAY RN.
[2019-05-29 05:39] LABS: Hematocrit 31.9 % (37.0-53.0); Hemoglobin 9.4 g/dL (13.5-17.5); Mean Corpuscular HGB 24.2 pg (26.0-34.0); Mean Corpuscular HGB Conc 29.5 g/dL (31.5-36.5); Mean Corpuscular Volume 82 fL (80-100); Mean Platelet Volume 9.7 fL (9.1-12.4); NRBC ABSOLUTE 0.07 K/mm3 (0.00-0.02); NRBC Auto 4.5 /100 WBC (0.0-0.2); Platelet Count 333 K/mm3 (150-400); RDW Coefficient Variation 24.5 % (11.7-14.2); RDW Standard Deviation 70.7 fL (35.1-46.3); Red Blood Cell Count 3.89 M/mm3 (4.30-5.90); White Blood Cell Count 1.57 K/mm3 (4.00-11.30)
[2019-05-29 06:11] LABS: BAND PERCENT MAN 5 % (0-8); BASOPHILS ABSOLUTE MAN 0.01 K/mm3 (0.00-0.23); BASOPHILS PERCENT MAN 1 % (0-2); BLASTS PERCENT MAN 0 % (0-0); EOSINOPHILS PERCENT MAN 7 % (0-6); LYMPHOCYTES % ATYPICAL MANUAL 5 % (0-0); LYMPHOCYTES ABSOLUTE MAN 0.75 K/mm3 (0.84-5.20); LYMPHOCYTES PERCENT MAN 43 % (21-46); MONOCYTES ABSOLUTE MAN 0.01 K/mm3 (0.16-1.47); MONOCYTES PERCENT MAN 1 % (4-13); MYELOCYTE ABSOLUTE MAN 0.01 K/mm3 (0.00-0.00); MYELOCYTE PERCENT MAN 1 % (0-0); NEUTROPHILS ABSOLUTE MAN 0.62 K/mm3 (1.96-9.15); SEG NEUTROPHILS PERCENT MAN 35 % (41-73); TOTAL CELLS COUNTED 100
[2019-05-29 06:12] LABS: OTHER CELL PERCENT MAN 2 % (0-0)
--- NOTE | 2019-05-29 13:19 | NUR ---
Pt. is in bed talking to his visitor ,he is doing much better offered prayers.
--- NOTE | 2019-05-29 13:20 | NUR ---
Pt. is in bed resting and talking to his visitor in the room he is doing well offered prayers
--- NOTE | 2019-05-29 17:20 | NUR ---
SUMMARY PT SITTING UP IN BED WATCHING TV, PT HAS BEEN PLEASANT AND COOPERATIVE WITH CARE T/O THE DAY, INDEPENDENT IN THE ROOM, FAMILY AND FRIENDS HAVE BEEN IN TO VISIT, NO COMPLAINTS, VSS, WILL CONT TO MONITOR
[2019-05-30 05:33] LABS: Hematocrit 33.3 % (37.0-53.0); Hemoglobin 9.9 g/dL (13.5-17.5); Mean Corpuscular HGB 24.2 pg (26.0-34.0); Mean Corpuscular HGB Conc 29.7 g/dL (31.5-36.5); Mean Corpuscular Volume 81 fL (80-100); Mean Platelet Volume 9.8 fL (9.1-12.4); NRBC ABSOLUTE 0.06 K/mm3 (0.00-0.02); NRBC Auto 3.8 /100 WBC (0.0-0.2); Platelet Count 303 K/mm3 (150-400); RDW Coefficient Variation 24.1 % (11.7-14.2); Red Blood Cell Count 4.09 M/mm3 (4.30-5.90); White Blood Cell Count 1.59 K/mm3 (4.00-11.30)
[2019-05-30 05:58] LABS: Albumin, Blood 2.7 g/dL (3.4-5.0); Anion Gap 8 mmol/L (6-16); Blood Urea Nitrogen 17 mg/dL (8-24); Bun/Creatinine Ratio 15.9 (12.0-20.0); CO2, Blood 27 mmol/L (21-32); Calcium, Blood 8.4 mg/dL (8.5-10.1); Chloride, Blood 101 mmol/L (98-108); Creatinine, Blood 1.07 mg/dL (0.60-1.20); Glomerular Filtration Rate >60 (60-); Glucose, Blood 103 mg/dL (70-99); Phosphorus, Blood 2.8 mg/dL (2.5-4.9); Sodium, Blood 136 mmol/L (136-145)
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
[2019-05-30 07:43] LABS: BAND PERCENT MAN 4 % (0-8); BASOPHILS PERCENT MAN 0 % (0-2); EOSINOPHILS ABSOLUTE MAN 0.07 K/mm3 (0.00-0.68); EOSINOPHILS PERCENT MAN 5 % (0-6); LYMPHOCYTES % ATYPICAL MANUAL 3 % (0-0); LYMPHOCYTES ABSOLUTE MAN 0.85 K/mm3 (0.84-5.20); LYMPHOCYTES PERCENT MAN 51 % (21-46); METAMYELOCYTE ABSOLUTE MAN 0.03 K/mm3 (0.00-0.00); METAMYELOCYTE PERCENT MAN 2 % (0-0); MONOCYTES ABSOLUTE MAN 0.07 K/mm3 (0.16-1.47); MONOCYTES PERCENT MAN 5 % (4-13); NEUTROPHILS ABSOLUTE MAN 0.52 K/mm3 (1.96-9.15); SEG NEUTROPHILS PERCENT MAN 29 % (41-73); TOTAL CELLS COUNTED 100
[2019-05-30 07:44] LABS: OTHER CELL PERCENT MAN 1 % (0-0)
[2019-05-30] MEDS ORDERED: PACERONE100 M1 PO (11:35)
[2019-05-30] MEDS ORDERED: MUPIROCIN1 GM TOP (11:36)
[2019-05-30] MEDS ORDERED: XARELTO20 MG PO (11:37)
[2019-05-30] MEDS ORDERED: LEVO750 PO (11:37)
--- NOTE | 2019-05-30 11:57 | NUR ---
PATIENT GIVEN VERBAL DISCHARGE INSTRUCTIONS WELL A PRINTED COPY. EDUCATIONAL MATERIAL PROVIDED REGARDING A-FLUTTER. PORT DE-ACCESSED. TELE REMOVED AND RETURNED TO PCU. PATIENT DISCHARGED HOME WITH HIS AT 1155.
--- NOTE | 2019-05-30 14:59 | NUR ---
Met Pt. in bed he is doing well and may g0 home today offered prayers
== END 2019-05-30 11:55 | disposition home or self-care (01) | DRG 809 ==
LOC: ER 08:59 → MEDS 12:44 → PCU 12:44 → MEDS 05-23 15:58
PROVIDERS: Emergency Medicine; Family Medicine; Internal Medicine; Nurse Practitioner Acute Care; ADMIT Hospitalist
PROC: 5A2204Z Restoration of Cardiac Rhythm, Single (ICD-10-PCS; principal; 2019-05-22)
DX: D70.2 Other drug-induced agranulocytosis (principal); D47.1 Chronic myeloproliferative disease; L12.9 Pemphigoid, unspecified; I48.92 Unspecified atrial flutter; I73.9 Peripheral vascular disease, unspecified; Z87.891 Personal history of nicotine dependence; I10 Essential (primary) hypertension; E11.9 Type 2 diabetes mellitus without complications; N28.9 Disorder of kidney and ureter, unspecified; E86.0 Dehydration
CPT/HCPCS: 36415; 71045; 73660; 80048; 80053; 80069; 83036; 83735; 83880; 84100; 84443; 84484; 85007; 85025; 85027; 85610; 85730; 92960; 93005; 93010; 93306; 93312; 93325; 96361-59; 96365-59; 96375-59; 99285-25; A9270; J0282; J1447; J1642; J1956; J2704; J3010; J7030; J7060; J7120; J7512

== ENCOUNTER → 2019-05-22 | Day surgery (SDC) | payer MEDICARE ==
[~2019-05-22] MED LIST changes: +AZACITIDINE100 MG IV; +CLOPIDOGREL75 MG PO; +DECITABINE IV; +GABA300 PO; +LISI20 PO; +MELATONIN 5 MG1 EACH PO; +Norco 10-325 T1 EACH PO; +Prednisone10 MG PO
== END ==
LOC: WOUND 00:12
DX: L97.522 Non-pressure chronic ulcer of other part of left foot with fat layer exposed (principal); L97.519 Non-pressure chronic ulcer of other part of right foot with unspecified severity; D64.9 Anemia, unspecified; I73.9 Peripheral vascular disease, unspecified; R55 Syncope and collapse; I74.4 Embolism and thrombosis of arteries of extremities, unspecified
CPT/HCPCS: G0463

== ENCOUNTER 2019-07-31 09:05 | Day surgery (SDC) | payer MEDICARE ==
[~2019-07-31] VITALS: Ht 172.7 cm; Wt 70.0 kg
[~2019-07-31 09:05] MED LIST changes: +AZACITIDINE100 MG IV; +CLOPIDOGREL75 MG PO; +DECITABINE IV; +GABA300 PO; +LEVO750 PO; +LISI20 PO; +MELATONIN 5 MG1 EACH PO; +METO25ER PO; +MUPIROCIN1 GM TOP; +NIFE30ER PO; +Norco 10-325 T1 EACH PO; +PACERONE100 M1 PO; +Prednisone10 MG PO; +XARELTO20 MG PO
[2019-07-31] MEDS ORDERED: ATOR20 PO (11:01)
--- NOTE | 2019-07-31 13:00 | NUR ---
PT TR BAND FULLY DEFLATED. NO BLEEDING OR HEMATOMA NOTED. VSS. PT SITTING UP EATING LUNCH AT THIS TIME. CALL LIGHT WITHIN REACH. NADN.
--- NOTE | 2019-07-31 13:43 | NUR ---
PT AMBULATES TO RESTROOM AND BACK WITHOUT DIFF. PT R RADIAL SITE REMAINS CLEAR. PT RESTING COMFORTABLY. VSS. NADN.
--- NOTE | 2019-07-31 13:53 | NUR ---
PT VERBALIZES UNDERSTANDING WRITTEN AND VERBAL ORDERS. DENIES QUESTIONS. PT IV DC'D. CATH INTACT. PRESSURE DSG IN PLACE. PT TR BAND REMOVED. DOT DRESSING APPLIED WITH SPLINT. PT DC TO HOME VIA WC BY THIS NURSE. VSS. LEONE.
== END 2019-07-31 11:00 | disposition home or self-care (01) ==
LOC: MHTC 09:05
PROC: B201YZZ Plain Radiography of Multiple Coronary Arteries using Other Contrast (ICD-10-PCS; principal; 2019-07-31)
PROC: 4A023N7 Measurement of Cardiac Sampling and Pressure, Left Heart, Percutaneous Approach (ICD-10-PCS; principal; 2019-07-31)
DX: I25.10 Atherosclerotic heart disease of native coronary artery without angina pectoris (principal); I10 Essential (primary) hypertension; Z79.01 Long term (current) use of anticoagulants; Z79.899 Other long term (current) drug therapy; Z87.891 Personal history of nicotine dependence; Z88.5 Allergy status to narcotic agent
CPT/HCPCS: 93458; 99152; C1769; C1894; J1644; J2250; J3010; J7030; Q9967